=== PATIENT | male | born 1990 | race Caucasian/White ===

== ENCOUNTER 2016-12-12 13:53 | Emergency (ER) | payer MEDICAID, OTHER ==
[~2016-12-12] VITALS: Ht 180.3 cm; Wt 106.5 kg
[~2016-12-12 13:53] MED LIST: BISM262O23 PO; LORA1TAB PO
[2016-12-12 14:01] VITALS: Ht 180.3 cm; Wt 106.5 kg
[2016-12-12] MEDS ORDERED: HYDR-906 PO (14:55)
[2016-12-12] MEDS ORDERED: IBUP800T25 PO (14:55)
[2016-12-12] MEDS ORDERED: AMOX1TAB10 PO (14:55)
--- NOTE | 2016-12-12 15:01 | ERD ---
ER Documentation Chief Complaint Chief Complaint rt facial swelling/pain since sunday night HPI 26-year-old male presents with right facial pain and swelling that he first noticed on Sunday night. Denies fever. He does state he has some small bumps in front of his ear that he notices. No trauma. He has been taking Advil. No nausea or vomiting. No cough. No difficulty speaking eating or drinking. ROS All systems reviewed and are negative except as per history of present illness. Medications Home Meds Active Scripts Hydrocodone/Acetaminophen (Garner 5-325 Tablet) 1 Each Tablet, 1 TAB PO Q6H Y for PAIN, #15 TAB Prov:OBED GOETZ PA-C 12/12/16 Ibuprofen* (Motrin*) 800 Mg Tab, 800 MG PO Q6, #30 TAB Prov:OBED GOETZ PA-C 12/12/16 Amoxicillin/Potassium Clav (Amox-Clav 875-125 mg Tablet) 875-125 mg Tab, 1 TAB PO BID for 10 Days, #20 TAB Prov:OBED GOETZ PA-C 12/12/16 Bismuth Subsalicylate* (Pepto-Bismol*) 262 Mg/15 Ml Oral.susp, 30 ML PO Q6H Y for PAIN for 2 Days, #240 ML 0 Refills Prov:KURT CASTILLO PA-C 07/04/15 Lorazepam* (Lorazepam*) 1 Mg Tablet, 1 MG PO QHS for ANXIETY, #5 TAB 0 Refills Prov:KURT CASTILLO PA-C 07/04/15 Allergies Allergies: Coded Allergies: No Known Drug Allergy (Verified Allergy, Mild, 12/12/16) PMhx/Soc History of Surgery: Yes (appendectomy 2004) Anesthesia Reaction: No Hx Neurological Disorder: No Hx Respiratory Disorders: Yes (asthma ) Hx Cardiac Disorders: No Hx Psychiatric Problems: No Hx Miscellaneous Medical Probl: No Hx Alcohol Use: Yes Hx Substance Use: Yes (MARIJUANA) Hx Tobacco Use: Yes Smoking Status: Former smoker FmHx Family History: No diabetes Physical Exam Vitals Vital Signs Date Time Temp Pulse Resp B/P Pulse Ox O2 Delivery O2 Flow Rate FiO2 12/12/16 14:01 99.5 97 16 145/95 98 Physical Exam INITIAL VITAL SIGNS: Reviewed by me GENERAL: Awake, alert and oriented x 4, well appearing, nontoxic, speaking in full sentences. No acute distress HEAD: Atraumatic NECK: Supple. No masses. Full range of motion. No meningismus. No midline tenderness. EYES: EOMI. PERRL. EAR: No tenderness over the mastoids bilaterally. No exudates in the canals. TMs nonerythematous. Right-sided periauricular lymphadenopathy THROAT: No tonilar erythema or edema. No exudates. Uvula midline. No kissing tonsils. RESPIRATORY: Clear to auscultation bilaterally. Symmetric chest wall rise. No wheezing or rales. No accessory muscle use. CV: Regular rate and rhythm. No murmurs, rubs, or gallops. BACK: No midline tenderness to palpation. No step-offs. SKIN: Right sided 1+ facial swelling, nontender, no erythema or warmth, Procedures/MDM Patient presents with mild facial swelling. Low-grade temperature 9 9.5 and he also has some right-sided periauricular lymphadenopathy. Possible he has a dental infection however it does not appear significant and he is tolerating oral intake and I believe he can be managed outpatient. Other possible diagnoses are trigeminal neuralgia versus TMJ. The rest of the examination is normal. Patient was discharged with Augmentin, ibuprofen, and a small amount of Garner. Told him he should return if his symptoms do not resolve or worsen. Especially if he has difficulty breathing or tolerating oral intake. No signs of that today. Patient counseled regarding my diagnostic impression and care plan. Prior to discharge all questions answered. Pt agrees with treatment plan and understands strict return precautions. Pt is instructed to follow up with primary care provider within 24-48 hours. Precautionary instructions provided including instructions to return to the ER if not improving or for any worsening or changing symptoms or concerns. Departure Diagnosis: Primary Impression: Facial swelling Condition: Stable Patient Instructions: Trigeminal Neuralgia Additional Instructions: Call your primary care doctor TOMORROW for an appointment during the next 1-2 days.See the doctor sooner or return here if your condition worsens before your appointment time. OBED GOETZ PA-C Dec 12, 2016 15:01
== END 2016-12-12 15:07 | disposition home or self-care (01) ==
LOC: FTE 13:53
DX: R22.0 Localized swelling, mass and lump, head (principal); J45.909 Unspecified asthma, uncomplicated; Z87.891 Personal history of nicotine dependence
CPT/HCPCS: 99284